=== PATIENT | male | born 1945 | race Asian ===

== ENCOUNTER 2018-10-25 04:08 | Emergency (ER) | payer MEDICARE, OTHER ==
[~2018-10-25] VITALS: Ht 177.8 cm; Wt 60.2 kg
[~2018-10-25 04:08] MED LIST: BEN25 PO; FAMO-96 PO
[2018-10-25 04:13] VITALS: Ht 177.8 cm; Wt 60.2 kg
[2018-10-25] MEDS ORDERED: DEXAMETHASONE 10 MG/ML 1 ML INJ IM ONE (06:30)
--- NOTE | 2018-10-25 06:37 | ERD ---
ER Documentation Chief Complaint Chief Complaint thigh hives x 3 days; denies new meds HPI This is a 73-year-old male with a past medical history of colon cancer status post colostomy and right chest port previously on chemotherapy that was completed 3 months ago is presenting with a faintly erythematous non-confluent papular itchy rash, existing only underneath his clothing, beginning 3 days ago. The patient reports going to his primary care physician yesterday, but he was not given any medication for his symptoms. The patient wants a shot here today to help get his symptoms under control. The patient does not endorse any new soaps or detergents or fabric softeners or lotions. He does not endorse any new clothing or towels or linens. He does not know of any new environmental changes. He does not endorse any alleviating or exacerbating factors. The patient denies feeling sick recently. The patient denies fever or chills. The patient has had no headache or vision changes. The patient does not endorse neck or back pain. The patient denies lightheadedness or dizziness. The patient has had no chest pain or trouble breathing. The patient denies nausea or vomiting. The patient denies abdominal pain. The patient denies changes to bowel movements or urination. The patient has had no focal deficits. The patient has had no weakness or numbness or tingling to the face or extremities. ROS All systems reviewed and are negative except as per history of present illness. Allergies Allergies: Coded Allergies: No Known Allergy (Unverified , 10/25/18) PMhx/Soc History of Surgery: Yes (COLOSTOMY ) Anesthesia Reaction: No Hx Neurological Disorder: No Hx Respiratory Disorders: No Hx Cardiac Disorders: No Hx Psychiatric Problems: No Hx Miscellaneous Medical Probl: Yes (Colon cancer status post colostomy and radiation, chronic back pain) Hx Alcohol Use: No Hx Substance Use: No Hx Tobacco Use: No Smoking Status: Never smoker FmHx Family History: No diabetes Physical Exam Vitals Vital Signs Date Temp Pulse Resp B/P (MAP) Pulse Ox O2 O2 Flow FiO2 Time Delivery Rate 10/25/18 97.2 62 18 122/60 99 04:13 (80) Physical Exam Const: No acute distress Head: Atraumatic Eyes: Normal Conjunctiva ENT: Normal External Ears, Nose and Mouth. Neck: Full range of motion. No meningismus. Resp: Clear to auscultation bilaterally Cardio: Regular rate and rhythm, no murmurs Chest: Right chest port in place. Abd: Soft, non tender, non distended. Normal bowel sounds. Colostomy in place. Skin: No petechiae. Faintly erythematous non-confluent papular pruritic rash, only on skin in contact with his clothing. Back: No midline or flank tenderness Ext: No cyanosis, or edema Neur: Awake and alert. No obvious focal deficits. Psych: Normal Mood and Affect Procedures/MDM MDM The patient's symptoms are consistent with hives. I do suspect an allergic reaction. The patient was encouraged to think about any possible environmental changes that could be the source of his allergic reaction. I do suspect something related to his clothing, as the hives are in a distribution consistent with the shorts and shirt that he is wearing. There is no evidence of anaphylaxis. There is no evidence of angioedema. The patient has no respiratory symptoms. I do not suspect impending airway compromise. The patie nt is not on any new medications. I do not suspect a medication reaction. I do not suspect an infectious etiology. I do not see evidence of cellulitis or abscess. Does not appear fungal in nature. TREATMENT/DISPOSITION The patient was treated with a dose of Decadron IM, Benadryl and Pepcid in the emergency department. DISCHARGE Upon reevaluation of the patient, symptoms have improved. No emergent diagnoses were identified. At this time, I feel that the patient stable for discharge. The patient was instructed to follow-up with a primary care physician in 1-3 days. The patient will be given strict precautions with which to return to the emergency department. Prescriptions: Benadryl, Pepcid The patient's blood pressure was elevated at greater than 120/80 while in the emergency department. The patient was otherwise stable with no evidence of hypertensive urgency or emergency. The patient does not require admission for blood pressure control. I have discussed with the patient the risks of hypertension. I have instructed the patient to return to the ER for any new or worsening symptoms including chest pain, shortness of breath, headache, blurred vision, confusion, nausea, vomiting or LOC. I have advised the patient to follow up with the primary care physician for outpatient monitoring and treatment for hypertension in 1-3 days. DISCLAIMER Inadvertent spelling and grammatical errors are likely due to EHR/dictation software use and do not reflect on the overall quality of patient care. Note that the electronic time recorded on this note does not necessarily reflect the actual time of the patient encounter. Departure Diagnosis: Primary Impression: Acute urticaria Additional Impression: Allergic reaction Encounter type: initial encounter Qualified Codes: T78.40XA - Allergy, unspecified, initial encounter Condition: Stable Patient Instructions: Allergic Reaction, Other (General) Additional Instructions: Thank you for for coming to [facility] for your care today. Please ask your nurse or provider if you have questions about your care today and do not leave until all your questions have been answered. Please use any medications given as directed and follow-up with your doctor (or the doctor you were referred to) in the next 1-3 days. If you do not have a primary care doctor you may follow up at the [facility] or [facility] (listed below). You may also use motrin and tylenol as needed for fever and/or pain unless instructed otherwise by your provider or nurse. Indications for more urgent follow-up have been discussed, but you may return to the Emergency Department at ANY time for any worrisome or worsening symptoms. If you have abdominal pain, please know that no test or exam you received is perfect and you should follow up within 8 hours for continued pain. If you had any imaging studies today, such as an X-Ray or CT Scan, these studies will be reviewed later by a radiologist. You will be called if there are impo rtant findings that were not identified today, so make sure the contact information you provided at registration is correct. If you received any narcotic pain control medicine today, such as Vicodin, Morphine or Dilaudid, your coordination and judgment may be affected for a number of hours. Please do not drive or operate heavy machinery, and you may want someone to assist you at home. If you were given a prescription for narcotic medication, be aware that it is very addictive- use sparingly and only if necessary. PLEASE SEEK FURTHER EVALUATION AND MANAGEMENT AT YOUR DOCTORS OFFICE WITHIN THE NEXT 1-3 DAYS. IT IS YOUR RESPONSIBILITY TO MAKE AN APPOINTMENT FOR FOLOW-UP CARE. IF YOU HAVE A PRIMARY DOCTOR, PLEASE CALL THEIR OFFICE TO SCHEDULE AN APPOINTMENT FOR FOLLOW UP. IF YOU DO NOT HAVE A PRIMARY DOCTOR YOU CAN CALL OUR PHYSICIAN REFERRAL HOTLINE AT IF YOU CAN NOT AFFORD TO SEE A PHYSICIAN YOU CAN CHOSE FROM THE FOLLOWING [facility] CLINICS: [facility] [address] [facility] [address] [facility] [facility] [address] [facility] [address] [facility] [address] [facility]. [facility]. [address] LOCO JOLLY MD Oct 25, 2018 06:36
[2018-10-25] MEDS ORDERED: FAMOTIDINE 20 MG TAB PO ONE (07:00)
[2018-10-25] MEDS ORDERED: DIPHENHYDRAMINE 25 MG CAP PO ONE (07:00)
[2018-10-25 07:10] VITALS: BP 125/63; PULSE 76; RESP 18
== END 2018-10-25 07:14 | disposition home or self-care (01) ==
LOC: FTE 04:08
DX: L50.0 Allergic urticaria (principal); Z85.038 Personal history of other malignant neoplasm of large intestine
CPT/HCPCS: 96372; 99284; J1100